=== PATIENT | male | born 1995 | race Caucasian/White ===

== ENCOUNTER 2018-02-09 02:02 | Emergency (ER) | payer OTHER ==
[2018-02-09] MEDS ORDERED: DIPH,PERTUS(ACELL)TETVAC-LF 0.5 ML VIAL IM ONE (02:30)
[2018-02-09] MEDS ORDERED: IBUPROFEN 600 MG TAB PO STA (02:30)
--- NOTE | 2018-02-09 02:36 | ED ---
Wound/Laceration HPI - General Chief Complaint: Wound/Laceration Stated Complaint: Finger Injury, [facility] Time Seen by Provider: 02/09/18 02:24 Source: patient Mode of arrival: ambulatory Limitations: no limitations - History of Present Illness Initial Comments: 22-year-old male patient presents to the emergency department today for evaluation of injury with laceration to the left middle finger. 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 Patient states that he did sustain a laceration to the finger. He denies any numbness or tingling to the digit. States bleeding is under control. Denies any other injuries. He is unsure when his last tetanus vaccine was given. Denies any history of bleeding disorder. Patient denies any headache, neck pain, back pain, chest pain, shortness of breath, dizziness, weakness, abdominal pain, nausea, vomiting, or difficulties with bowel movements or urination. - Related Data Home Medications Medication Instructions Recorded Confirmed Dexmethylphenidate HCl [Focalin Xr] 40 mg PO QAM 02/08/16 02/08/16 Previous Rx's Medication Instructions Recorded Ibuprofen [Motrin] 600 mg PO Q8HR PRN #30 tab 02/09/18 Allergies Allergy/AdvReac Type Severity Reaction Status Date / Time Sulfa (Sulfonamide Allergy Unknown Verified 02/09/18 02:09 Antibiotics) Review of Systems ROS Statement: Those systems with pertinent positive or pertinent negative responses have been documented in the HPI. ROS Other: All systems not noted in ROS Statement are negative. Past Medical History Past Medical History: No Reported History History of Any Multi-Drug Resistant Organisms: None Reported Past Surgical History: Orthopedic Surgery Past Psychological History: ADD/ADHD Smoking Status: Never smoker Past Alcohol Use History: None Reported Past Drug Use History: None Reported General Exam Limitations: no limitations General appearance: alert, in no apparent distress, other (Physical well- developed, well-nourished adult male patient in no acute distress. Vital signs upon presentation are temperature 97.9F, pulse 56, respirations 16, blood pressure 140/69, pulse ox 100% on room air.) Eye exam: Present: normal appearance, PERRL, EOMI. Absent: scleral icterus, conjunctival injection, periorbital swelling ENT exam: Present: normal exam, normal oropharynx, mucous membranes moist Respiratory exam: Present: normal lung sounds bilaterally. Absent: respiratory distress, wheezes, rales, rhonchi, stridor Cardiovascular Exam: Present: regular rate, normal rhythm, normal heart sounds. Absent: systolic murmur, diastolic murmur, rubs, gallop, clicks Extremities exam: Present: full ROM, normal capillary refill, other (Patient has 2 cm laceration to the distal tip of the left middle finger. This does involve the nail. Bleeding is currently under control. Skin is otherwise pink , warm, and dry. Cap refills less than 3 seconds. Radial pulses 2+ and equal bilaterally.). Absent: normal inspection, tenderness, pedal edema, joint swelling, calf tenderness Neurological exam: Present: alert, oriented X3, CN II-XII intact Psychiatric exam: Present: normal affect, normal mood Skin exam: Present: warm, dry, intact, normal color. Absent: rash Course Vital Signs 02/09/18 02:06 Temperature 97.9 F Pulse Rate 56 L Respiratory 16 Rate Blood Pressure 140/69 O2 Sat by Pulse 100 Oximetry Procedures - Laceration Laceration #1 Consent Obtained: verbal consent Time Out Performed: Yes Indication: laceration Site: hand (Left middle finger) Size (cm): 2 Description: linear (Involves nail) Depth: simple, single layer Anesthetic Used: lidocaine 1% Anesthesia Technique: local infiltration Amount (mls): 1 Pre-repair: irrigated extensively Type of Sutures: nylon Size of Sutures: 5-0 Number of Sutures: 2 Technique: simple, interrupted Patient Tolerated Procedure: well, no complications Medical Decision Making - Medical Decision Making 22-year-old male patient presents to the emergency department today for evaluation of left middle finger injury. Physical examination did reveal a 2 cm laceration to the distal tip of the nail involving the nailbed. Did repair the finger using sutures. Patient tolerated the procedure well. There is no evidence of fracture on x-ray. He was educated regarding signs or symptoms of infection. Educated regarding wound care and pain management. He is instructed to return in 7 days for suture removal. He is instructed to follow up with his primary care physician or [facility] for further evaluation. He verbalizes understanding and agrees with this plan. - Radiology Data Radiology results: report reviewed, image reviewed Three-view x-ray of the left middle finger show no fracture nor dislocation. Joint spaces are normal. Middle finger is intact. There is mild soft tissue deformity at the tip of the finger. Impression by Dr. Waldron shows mild soft tissue deformity. No fracture seen. Disposition Clinical Impression: Nailbed laceration, finger, Finger laceration Disposition: HOME SELF-CARE Condition: Good Instructions: Laceration (ED), Care For Your Stitches (ED) Additional Instructions: Keep wound clean and dry. Monitor for signs or symptoms of infection including but not limited to swelling, redness, drainage of pus, fever, or chills. Gently cleanse wound twice daily with warm water and antibacterial soap. Return in 7 days to have stitches removed. Wear splint while working. Follow- up with your primary care physician or [facility] services for further evaluation. Return here immediately for any new, worsening, or concerning symptoms. Prescriptions: Ibuprofen [Motrin] 600 mg PO Q8HR PRN #30 tab PRN Reason: Pain Referrals: Miguel Angel Stallworth MD [Primary Care Provider] - 1-2 days Time of Disposition: 03:20
--- NOTE | 2018-02-09 02:53 | XR ---
EXAMINATION TYPE: XR finger LT DATE OF EXAM: 02/09/2018 COMPARISON: NONE HISTORY: Injury TECHNIQUE: 3 views FINDINGS: I see no fracture nor dislocation. Joint spaces are normal. Middle finger is intact. There is mild soft tissue deformity at the tip of the finger. IMPRESSION: Mild soft tissue deformity. No fracture seen.
[2018-02-09 03:35] VITALS: BP 130/82; PULSE 75; RESP 18; TEMP 98.4
== END 2018-02-09 03:35 | disposition home or self-care (01) ==
LOC: EC 02:02
DX: S61.213A Laceration without foreign body of left middle finger without damage to nail, initial encounter (principal); F90.9 Attention-deficit hyperactivity disorder, unspecified type; Z79.899 Other long term (current) drug therapy; Z88.2 Allergy status to sulfonamides; Z23 Encounter for immunization; W31.9XXA Contact with unspecified machinery, initial encounter; Y93.89 Activity, other specified; Y92.63 Factory as the place of occurrence of the external cause; Y99.0 Civilian activity done for income or pay
CPT/HCPCS: 12001; 90471; 90715; 99283

== ENCOUNTER 2018-07-24 07:01 | Emergency (ER) | payer BC ==
[2018-07-24 07:09] VITALS: BP 132/66; PULSE 59; RESP 16; TEMP 98.3
--- NOTE | 2018-07-24 07:32 | ED ---
General Adult HPI - General Chief complaint: ENT Stated complaint: Ear Pain Time Seen by Provider: 07/24/18 07:20 Source: patient, RN notes reviewed Mode of arrival: ambulatory Limitations: no limitations - History of Present Illness Initial comments: Patient is a pleasant 22-year-old male presenting to the emergency department with left earache. Onset of symptoms was yesterday. Patient does admit to recently swimming at the . Patient has discomfort left ear that increases with movement. No hearing loss. No fevers. - Related Data Home Medications Medication Instructions Recorded Confirmed Dexmethylphenidate HCl [Focalin Xr] 40 mg PO QAM 02/08/16 02/08/16 Previous Rx's Medication Instructions Recorded Ibuprofen [Motrin] 600 mg PO Q8HR PRN #30 tab 02/09/18 Enoimvda-Saqzdxcsw-El Otic 4 drops LEFT EAR QID #10 ml 07/24/18 [Cortisporin Otic Soln] Allergies Allergy/AdvReac Type Severity Reaction Status Date / Time Sulfa (Sulfonamide Allergy Unknown Verified 02/09/18 02:09 Antibiotics) Review of Systems ROS Statement: Those systems with pertinent positive or pertinent negative responses have been documented in the HPI. Constitutional: Denies: fever Eyes: Denies: eye pain ENT: Reports: ear pain. Denies: throat pain Respiratory: Denies: dyspnea Cardiovascular: Denies: chest pain Gastrointestinal: Denies: abdominal pain Skin: Denies: rash Neurological: Denies: headache Past Medical History Past Medical History: No Reported History History of Any Multi-Drug Resistant Organisms: None Reported Past Surgical History: Orthopedic Surgery Additional Past Surgical History / Comment(s): l elbow Past Psychological History: ADD/ADHD Smoking Status: Current every day smoker Past Alcohol Use History: Occasional Past Drug Use History: Marijuana General Exam Limitations: no limitations General appearance: alert, in no apparent distress Head exam: Present: atraumatic Eye exam: Present: normal appearance ENT exam: Present: normal oropharynx, other (Left canal with swelling and mild erythema) Neck exam: Present: normal inspection Respiratory exam: Present: normal lung sounds bilaterally Cardiovascular Exam: Present: regular rate, normal rhythm GI/Abdominal exam: Present: soft. Absent: tenderness Neurological exam: Present: alert Psychiatric exam: Present: normal affect, normal mood Skin exam: Present: normal color. Absent: rash Course Vital Signs 07/24/18 07:07 Temperature 98.3 F Pulse Rate 59 L Respiratory 16 Rate Blood Pressure 132/66 O2 Sat by Pulse 98 Oximetry Disposition Clinical Impression: Otitis externa Disposition: HOME SELF-CARE Condition: Stable Instructions: Otitis Externa (ED) Additional Instructions: Please follow-up with primary care physician in the next couple days for recheck. Return for hearing loss, swelling, fevers, worsening or changing symptoms or other concerns. Prescriptions: Qyyljxhc-Sbifyrhba-Tt Otic [Cortisporin Otic Soln] 4 drops LEFT EAR QID #10 ml Is patient prescribed a controlled substance at d/c from ED?: No Referrals: Price Hartley MD [STAFF PHYSICIAN] - 1-2 days Time of Disposition: 07:31
== END 2018-07-24 07:36 | disposition home or self-care (01) ==
LOC: EC 07:01
DX: H60.92 Unspecified otitis externa, left ear (principal); F90.9 Attention-deficit hyperactivity disorder, unspecified type; F17.200 Nicotine dependence, unspecified, uncomplicated; Z79.899 Other long term (current) drug therapy; Z88.2 Allergy status to sulfonamides
CPT/HCPCS: 99282

== ENCOUNTER 2019-10-31 04:12 | Emergency (ER) | payer BC ==
[2019-10-31 04:22] VITALS: TEMP 98
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
[2019-10-31 06:16] VITALS: BP 132/82; PULSE 82; RESP 18
--- NOTE | 2019-10-31 06:17 | XR ---
EXAM: XR Chest, 2 Views CLINICAL HISTORY: chest pain TECHNIQUE: Frontal and lateral views of the chest. COMPARISON: No relevant prior studies available. FINDINGS: Lungs: Low lung volumes. No consolidation. Pleural space: Unremarkable. No pleural effusions. No pneumothorax. Heart: Unremarkable. No cardiomegaly. Mediastinum: Unremarkable. Bones/joints: Unremarkable. IMPRESSION: No acute cardiopulmonary process.
== END 2019-10-31 06:15 | disposition home or self-care (01) ==
LOC: EC 04:12
DX: R07.89 Other chest pain (principal); R20.2 Paresthesia of skin; R53.1 Weakness; F90.9 Attention-deficit hyperactivity disorder, unspecified type; F17.200 Nicotine dependence, unspecified, uncomplicated; Z88.2 Allergy status to sulfonamides; Z79.899 Other long term (current) drug therapy; Z63.4 Disappearance and death of family member; Z63.79 Other stressful life events affecting family and household
CPT/HCPCS: 71046; 93005; 99285

== ENCOUNTER 2021-07-01 04:58 | Emergency (ER) | payer BC, OTHER ==
[2021-07-01 05:04] VITALS: RESP 18; TEMP 98.7
--- NOTE | 2021-07-01 05:20 | ED ---
Chest Pain HPI - General Chief Complaint: Chest Pain Stated Complaint: Chest Pain Time Seen by Provider: 07/01/21 05:03 Source: patient, RN notes reviewed, old records reviewed Mode of arrival: wheelchair Limitations: no limitations - History of Present Illness Initial Comments: This is a 25-year-old male DF for evaluation. Today he presents for evaluation regards to chest pain chest pain that began while at work today. Patient states isn't working a lot lately drink bladder days and occasional rigidity injury. Patient does have a history of alcohol use and smoking. Patient comes in for some chest pain that occurred at work that brought him to his knees now currently resolved. Otherwise patient is no medical history takes no medications no significant family history of heart disease MD Complaint: chest pain -: hour(s) Onset: during exertion Pain Location: substernal Pain Radiation: none Severity: mild Severity scale (1-10): 2 Quality: tightness, sharp Consistency: constant, now resolved Improves With: nothing Worsens With: nothing Anginal Symptoms: diaphoresis, sense of impending doom Other Symptoms: palpitations Treatments Prior to Arrival: none - Related Data Home Medications Medication Instructions Recorded Confirmed Dexmethylphenidate HCl [Focalin Xr] 40 mg PO QAM 02/08/16 02/08/16 Previous Rx's Medication Instructions Recorded Ibuprofen [Motrin] 600 mg PO Q8HR PRN #30 tab 02/09/18 Lahanqxq-Deffzxqxe-Kh Otic 4 drops LEFT EAR QID #10 ml 07/24/18 [Cortisporin Otic Soln] Allergies Allergy/AdvReac Type Severity Reaction Status Date / Time Sulfa (Sulfonamide Allergy Unknown Verified 07/01/21 05:04 Antibiotics) Review of Systems ROS Statement: Those systems with pertinent positive or pertinent negative responses have been documented in the HPI. ROS Other: All systems not noted in ROS Statement are negative. EKG Findings - EKG Comments: EKG Findings:: EKG is sinus rhythm 63 CA 162 QRS 110 QTc 384 Past Medical History Past Medical History: No Reported History History of Any Multi-Drug Resistant Organisms: None Reported Past Surgical History: Orthopedic Surgery Additional Past Surgical History / Comment(s): l elbow Past Psychological History: ADD/ADHD Smoking Status: Vaper Past Alcohol Use History: Heavy Past Drug Use History: Marijuana General Exam General appearance: alert, in no apparent distress Head exam: Present: atraumatic, normocephalic, normal inspection Eye exam: Present: normal appearance, PERRL, EOMI. Absent: scleral icterus, conjunctival injection, periorbital swelling ENT exam: Present: normal exam, mucous membranes moist Neck exam: Present: normal inspection. Absent: tenderness, meningismus, lymphadenopathy Respiratory exam: Present: normal lung sounds bilaterally. Absent: respiratory distress, wheezes, rales, rhonchi, stridor Cardiovascular Exam: Present: regular rate, normal rhythm, normal heart sounds. Absent: systolic murmur, diastolic murmur, rubs, gallop, clicks GI/Abdominal exam: Present: soft, normal bowel sounds. Absent: distended, tenderness, guarding, rebound, rigid Extremities exam: Present: normal inspection, full ROM, normal capillary refill. Absent: tenderness, pedal edema, joint swelling, calf tenderness Back exam: Present: normal inspection Neurological exam: Present: alert, oriented X3, CN II-XII intact Psychiatric exam: Present: normal affect, normal mood Skin exam: Present: warm, dry, intact, normal color. Absent: rash Course Vital Signs 07/01/21 04:59 Temperature 98.7 F Pulse Rate 84 Respiratory 18 Rate Blood Pressure 147/95 - Reevaluation(s) Reevaluation #1: 07/01/21 05:22 Medical record is reviewed Reevaluation #2: 07/01/21 05:22 Patient remains without chest pain Reevaluation #3: 07/01/21 05:22 Patient informed results and questions are answered Chest Pain MDM - MDM 25 male to the ER for evaluation, patient here in the ER for chest pain, chest pain resolved and patient can be discharged home Disposition Clinical Impression: Chest pain, Atypical chest pain Disposition: HOME SELF-CARE Condition: Good Instructions (If sedation given, give patient instructions): Chest Pain (ED) Is patient prescribed a controlled substance at d/c from ED?: No Referrals: None,Stated [Primary Care Provider] - 1-2 days
[2021-07-01 05:51] VITALS: BP 136/87; PULSE 75
--- NOTE | 2021-07-01 06:04 | XR ---
EXAMINATION TYPE: XR chest 1V portable DATE OF EXAM: 07/01/2021 COMPARISON: 10/31/2019 HISTORY: Chest pain TECHNIQUE: FINDINGS: Heart and mediastinum are normal. Lungs are clear. Diaphragm is normal. Bony thorax is inta ct. IMPRESSION: Normal chest. No change.
== END 2021-07-01 05:51 | disposition home or self-care (01) ==
LOC: EC 04:58
DX: R07.89 Other chest pain (principal); F90.9 Attention-deficit hyperactivity disorder, unspecified type; F17.290 Nicotine dependence, other tobacco product, uncomplicated; Z72.89 Other problems related to lifestyle; F12.90 Cannabis use, unspecified, uncomplicated
CPT/HCPCS: 71045; 93005; 99285

== ENCOUNTER 2021-07-07 07:07 | Emergency (ER) | payer OTHER ==
[2021-07-07] MEDS ORDERED: LIDOCAINE 1% INJ 10MG/ML (20 ML MDV) SQ ONE (07:50)
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
--- NOTE | 2021-07-07 09:16 | ED ---
General Adult HPI - General Chief complaint: Wound/Laceration Stated complaint: Right middle finger lac - [facility] Time Seen by Provider: 07/07/21 07:31 Source: patient Mode of arrival: ambulatory Limitations: no limitations - History of Present Illness Initial comments: Patient is a 25-year-old male who presents to the emergency room for a chief complaint of laceration. 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 Patient denies any difficulty bending his finger. States his tetanus is up-to-date 5 years ago. Patient reports that his work put a powder over it in order to get it to stop bleeding.Patient has no other complaints at this time including shortness of breath, chest pain, abdominal pain, nausea or vomiting, headache, or visual changes. - Related Data Home Medications Medication Instructions Recorded Confirmed Dexmethylphenidate HCl [Focalin Xr] 40 mg PO QAM 02/08/16 02/08/16 Previous Rx's Medication Instructions Recorded Ibuprofen [Motrin] 600 mg PO Q8HR PRN #30 tab 02/09/18 Eeekvzgs-Ncrfkulrj-Zw Otic 4 drops LEFT EAR QID #10 ml 07/24/18 [Cortisporin Otic Soln] Cephalexin [Keflex] 500 mg PO Q6HR 5 Days #20 cap 07/07/21 Allergies Allergy/AdvReac Type Severity Reaction Status Date / Time Sulfa (Sulfonamide Allergy Unknown Verified 07/07/21 07:10 Antibiotics) Review of Systems ROS Statement: Those systems with pertinent positive or pertinent negative responses have been documented in the HPI. ROS Other: All systems not noted in ROS Statement are negative. Past Medical History Past Medical History: No Reported History History of Any Multi-Drug Resistant Organisms: None Reported Past Surgical History: Orthopedic Surgery Additional Past Surgical History / Comment(s): l elbow Past Psychological History: ADD/ADHD Smoking Status: Vaper Past Alcohol Use History: Occasional Past Drug Use History: None Reported General Exam Limitations: no limitations General appearance: alert, in no apparent distress Head exam: Present: atraumatic Eye exam: Present: normal appearance, PERRL, EOMI. Absent: scleral icterus, conjunctival injection ENT exam: Present: normal exam, mucous membranes moist Neck exam: Present: normal inspection, full ROM. Absent: tenderness Respiratory exam: Present: normal lung sounds bilaterally. Absent: respiratory distress, wheezes Cardiovascular Exam: Present: regular rate, normal rhythm, normal heart sounds Extremities exam: Present: full ROM (Full range motion of the right third digit including flexion of the MCP, PIP, and DIP joints.), normal capillary refill (Apley refill less than 2 seconds in all digits of the right hand including the right third digit. Radial pulses 2+.), other (Laceration noted to the third digit right hand volar aspect of PIP joint. This I do not see any deep structure injury.) Course Vital Signs 07/07/21 07:10 Temperature 98 F Pulse Rate 71 Respiratory 18 Rate Blood Pressure 138/93 O2 Sat by Pulse 98 Oximetry Procedures - Laceration Laceration #1 Consent Obtained: verbal consent Indication: laceration Site: hand Size (cm): 3 Description: linear, flap Depth: simple, single layer Anesthetic Used: lidocaine 1% Anesthesia Technique: local infiltration Amount (mls): 3 Pre-repair: wound explored, irrigated extensively, deep structures intact Type of Sutures: nylon Size of Sutures: 4-0 Number of Sutures: 5 Technique: simple, interrupted Patient Tolerated Procedure: well, no complications Medical Decision Making - Medical Decision Making X-ray revealed a linear lucency consistent with laceration and small densities that could reflect overlying debris. This is likely the powder that was applied. This was soaked off. I then irrigated the wound with saline pressure irrigation. It was then repaired using simple suturing. Patient was given return parameters and care instructions. He will follow-up with his doctor. He will return here for suture removal or any worsening symptoms or signs of infection. Disposition Clinical Impression: Laceration Disposition: HOME SELF-CARE Condition: Good Instructions (If sedation given, give patient instructions): Care For Your Stitches (ED), Laceration (ED) Additional Instructions: Please keep the wound clean with gentle soap and water twice daily. Apply antibiotic ointment daily. Return in 7-10 days for suture removal. Return earlier if there are any signs of infections or any other worsening symptoms. Prescriptions: Cephalexin [Keflex] 500 mg PO Q6HR 5 Days #20 cap Is patient prescribed a controlled substance at d/c from ED?: No Referrals: None,Stated [Primary Care Provider] - 1-2 days Time of Disposition: 09:14
[2021-07-07 09:50] VITALS: BP 141/80; PULSE 89; RESP 16; TEMP 98.2
[2021-07-07] MEDS ORDERED: NICOTINE 21MG/24HR PATCH TRANSDERM STA (09:51)
[2021-07-07] MEDS ORDERED: LORazepam 2 MG/ML INJ IM STA (09:51)
== END 2021-07-07 09:38 | disposition home or self-care (01) ==
LOC: EC 07:07
DX: S61.212A Laceration without foreign body of right middle finger without damage to nail, initial encounter (principal); F17.290 Nicotine dependence, other tobacco product, uncomplicated; Z79.1 Long term (current) use of non-steroidal anti-inflammatories (NSAID); Z79.899 Other long term (current) drug therapy; Z88.2 Allergy status to sulfonamides; W26.8XXA Contact with other sharp object(s), not elsewhere classified, initial encounter; Y99.0 Civilian activity done for income or pay
CPT/HCPCS: 73140; 12002; 99283; J2001

== ENCOUNTER 2022-08-17 23:12 | Emergency (ER) | payer OTHER ==
[2022-08-17 23:23] VITALS: TEMP 97.9
[2022-08-18] MEDS ORDERED: SODIUM CHLORIDE 0.9% 1,000 ML IV STA (00:05)
[2022-08-18] MEDS ORDERED: AMPICILLIN-SULBACTAM 3 GM in SODIUM CHLORIDE 0.9% 50 ML IVPB STA (00:05)
[2022-08-18] MEDS ORDERED: AMPICILLIN-SULBACTAM 3 GM in SODIUM CHLORIDE 0.9% 100 ML IVPB STA (00:09)
--- NOTE | 2022-08-18 00:09 | ED ---
Animal Bite HPI - General Chief Complaint: Animal Bite Stated Complaint: Left hand Painful swelling Time Seen by Provider: 08/17/22 23:37 Source: patient, RN notes reviewed Mode of arrival: ambulatory Limitations: no limitations - History of Present Illness Initial Comments: This is a pleasant, [id number] 27-year-old male who was bitten by his girlfriend's cat yesterday. Patient now presenting with erythema, edema, and pain to left hand. Patient states the bite cause a small puncture wound to the fourth interdigital space. Patient believes he is up-to-date on tetanus. Patient is a cigarette smoker. No headache, no fever or chills, no changes in vision or hearing, no sore throat or difficulty with speech, no neck pain, no chest pain or shortness of breath, no abdominal pain, no nausea or vomiting, no changes in urination or bowel movements, no numbness or tingling, no skin rashes or lesions. Past medical, surgical, social, and family history reviewed. MD Complaint: animal bite - Related Data Home Medications Medication Instructions Recorded Confirmed Dexmethylphenidate HCl [Focalin Xr] 40 mg PO QAM 02/08/16 02/08/16 Previous Rx's Medication Instructions Recorded Ibuprofen [Motrin] 600 mg PO Q8HR PRN #30 tab 02/09/18 Qcictnfd-Ajxjbvnfu-Vt Otic 4 drops LEFT EAR QID #10 ml 07/24/18 [Cortisporin Otic Soln] Cephalexin [Keflex] 500 mg PO Q6HR 5 Days #20 cap 07/07/21 Amoxic-Pot Clav 875-125Mg 1 tab PO Q12HR 1 Days #20 tab 08/18/22 [Augmentin 875-125] Allergies Allergy/AdvReac Type Severity Reaction Status Date / Time Sulfa (Sulfonamide Allergy Unknown Verified 08/17/22 23:23 Antibiotics) Review of Systems ROS Statement: Those systems with pertinent positive or pertinent negative responses have been documented in the HPI. ROS Other: All systems not noted in ROS Statement are negative. Past Medical History Past Medical History: No Reported History History of Any Multi-Drug Resistant Organisms: None Reported Past Surgical History: Orthopedic Surgery Additional Past Surgical History / Comment(s): l elbow Past Psychological History: ADD/ADHD Smoking Status: Vaper Past Alcohol Use History: Occasional Past Drug Use History: None Reported General Exam - General Exam Comments Initial Comments: Patient does not appear to be ill or toxic. Vital signs reviewed. Limitations: no limitations General appearance: alert, in no apparent distress Head exam: Present: atraumatic, normocephalic, normal inspection Eye exam: Present: normal appearance, PERRL, EOMI. Absent: scleral icterus, conjunctival injection, periorbital swelling ENT exam: Present: normal exam, mucous membranes moist Neck exam: Present: normal inspection, full ROM. Absent: tenderness, meningismus, lymphadenopathy Respiratory exam: Present: normal lung sounds bilaterally. Absent: respiratory distress, wheezes, rales, rhonchi, stridor Cardiovascular Exam: Present: regular rate, normal rhythm, normal heart sounds. Absent: systolic murmur, diastolic murmur, rubs, gallop, clicks GI/Abdominal exam: Present: soft, normal bowel sounds. Absent: distended, tenderness, guarding, rebound, rigid Extremities exam: Present: full ROM (Pulses are 2+ out of 4. Capillary refill less than 2 seconds. Sensation intact), normal capillary refill, other (Full range of motion with regard to all fingers, hand, and wrist with some increased pain.). Absent: normal inspection (Patient has edema noted to the dorsum of his left hand. Erythema progressing just past the wrist. No lymphangitis. No axillary adenopathy. Tiny puncture wound noted to the fourth interdigital space on the extensor aspect of the hand.), tenderness, joint swelling Back exam: Present: normal inspection Neurological exam: Present: alert, oriented X3, CN II-XII intact. Absent: motor sensory deficit Psychiatric exam: Present: normal affect, normal mood Skin exam: Present: warm, dry, intact, normal color. Absent: rash Course Vital Signs 08/17/22 23:19 Temperature 97.9 F Pulse Rate 60 Respiratory 16 Rate Blood Pressure 153/81 O2 Sat by Pulse 99 Oximetry Medical Decision Making - Medical Decision Making Patient be treated for cat-bite cellulitis. He received a dose of Unasyn here. Patient stated he was up-to-date on tetanus. Augmentin 875 mg twice a day. Patient has no primary care doctor. Patient will return to the emergency department in 48 hours for recheck. Discussed this with the patient. All questions answered. Treatment plan discussed. Cat is the family pet and can be monitored. Cat is up-to-date on immunizations. Patient was told to return to the ER for any signs or symptoms worsen. Told to return immediately if any other problems arise. All questions answered. Treatment plan discussed. Patient in agreement Every effort has been made to ensure accuracy of this dictation. However, due to the limitations of electronic medical records and dictation devices, errors in charting still occur. - Lab Data Result diagrams: 08/18/22 00:43 08/18/22 00:43 Lab Results 08/18/22 08/18/22 08/18/22 Range/Units 00:43 00:43 00:43 WBC 11.1 H (3.8-10.6) k/uL RBC 5.60 (4.30-5.90) m/uL Hgb 16.4 (13.0-17.5) gm/dL Hct 48.8 (39.0-53.0) % MCV 87.1 (80.0-100.0) fL MCH 29.3 (25.0-35.0) pg MCHC 33.7 (31.0-37.0) g/dL RDW 13.5 (11.5-15.5) % Plt Count 226 (150-450) k/uL MPV 7.7 Neutrophils % 57 % Lymphocytes % 33 % Monocytes % 5 % Eosinophils % 3 % Basophils % 1 % Neutrophils # 6.3 (1.3-7.7) k/uL Lymphocytes # 3.6 (1.0-4.8) k/uL Monocytes # 0.5 (0-1.0) k/uL Eosinophils # 0.3 (0-0.7) k/uL Basophils # 0.1 (0-0.2) k/uL Sodium 138 (137-145) mmol/L Potassium 3.9 (3.5-5.1) mmol/L Chloride 101 (98-107) mmol/L Carbon Dioxide 23 (22-30) mmol/L Anion Gap 14 mmol/L BUN 16 (9-20) mg/dL Creatinine 0.84 (0.66-1.25) mg/dL Est GFR (CKD-EPI)AfAm >90 (>60 ml/min/1.73 sqM) Est GFR (CKD-EPI)NonAf >90 (>60 ml/min/1.73 sqM) Glucose 101 H (74-99) mg/dL Plasma Lactic Acid Giacomo 1.3 (0.7-2.0) mmol/L Calcium 9.2 (8.4-10.2) mg/dL - Radiology Data Radiology results: report reviewed, image reviewed Disposition Clinical Impression: Cat bite, Cellulitis of left hand Disposition: HOME SELF-CARE Instructions (If sedation given, give patient instructions): Animal Bite (ED) Additional Instructions: Take the antibiotic as directed. Elevate the hand whenever possible. Apply warm compresses for 10-15 minutes at a time 4 times per day. Follow-up with your regular physician as directed. Return to the ER immediately if any sym ptoms worsen, new symptoms arise, or any other problems develop. Return to the emergency department in 48 hours for reevaluation and recheck. Prescriptions: Amoxic-Pot Clav 875-125Mg [Augmentin 875-125] 1 tab PO Q12HR 1 Days #20 tab Is patient prescribed a controlled substance at d/c from ED?: No Referrals: None,Stated [Primary Care Provider] - 1-2 days Time of Disposition: 01:33
[2022-08-18 00:58] LABS: Basophils # (A) 0.1 k/uL (0-0.2); Basophils % (A) 1 %; Eosinophils # (A) 0.3 k/uL (0-0.7); Eosinophils % (A) 3 %; HCT 48.8 % (39.0-53.0); HGB 16.4 gm/dL (13.0-17.5); Lymphocytes # (A) 3.6 k/uL (1.0-4.8); Lymphocytes % (A) 33 %; MCH 29.3 pg (25.0-35.0); MCHC 33.7 g/dL (31.0-37.0); MCV 87.1 fL (80.0-100.0); Mean Platelet Volume 7.7; Monocytes # (A) 0.5 k/uL (0-1.0); Monocytes % (A) 5 %; Neutrophils # (A) 6.3 k/uL (1.3-7.7); Neutrophils % (A) 57 %; Platelet Count 226 k/uL (150-450); RDW 13.5 % (11.5-15.5); WBC 11.1 k/uL (3.8-10.6)
[2022-08-18 01:10] LABS: African American GFR (CKD) >90 (>60 ml/min/1.73 sqM); Anion Gap 14 mmol/L; Blood Urea Nitrogen 16 mg/dL (9-20); Calcium 9.2 mg/dL (8.4-10.2); Carbon Dioxide 23 mmol/L (22-30); Chloride 101 mmol/L (98-107); Glucose 101 mg/dL (74-99); Non-African American GFR(CKD) >90 (>60 ml/min/1.73 sqM); Potassium 3.9 mmol/L (3.5-5.1); Sodium 138 mmol/L (137-145)
--- NOTE | 2022-08-18 01:28 | XR ---
EXAM: XR Left Hand Complete, 3 or More Views CLINICAL HISTORY: ITS.REASON XR Reason: Cat-bite TECHNIQUE: Frontal, lateral and oblique views of the left hand. COMPARISON: No relevant prior studies available. FINDINGS: Bones/joints: Unremarkable. No acute fracture. No dislocation. Soft tissues: Unremarkable. No radiopaque foreign body. IMPRESSION: Normal left hand x-rays.
[2022-08-18 01:59] VITALS: BP 115/67; PULSE 50; RESP 14
== END 2022-08-18 01:52 | disposition home or self-care (01) ==
LOC: EC 23:12
DX: S61.452A Open bite of left hand, initial encounter (principal); L03.114 Cellulitis of left upper limb; F12.90 Cannabis use, unspecified, uncomplicated; Z88.2 Allergy status to sulfonamides; W55.01XA Bitten by cat, initial encounter
CPT/HCPCS: 36415; 80048; 83605; 85025; 73130; 99283; J0295

== ENCOUNTER 2022-10-05 22:01 | Emergency (ER) | payer OTHER ==
[2022-10-05] MEDS ORDERED: SODIUM CHLORIDE 0.9% 1,000 ML IV ONE (22:22)
[2022-10-05] MEDS ORDERED: ONDANSETRON 4 MG/2 ML VIAL IVP STA (22:22)
[2022-10-05 23:06] LABS: Basophils # (A) 0.1 k/uL (0-0.2); Basophils % (A) 1 %; Eosinophils # (A) 0.2 k/uL (0-0.7); Eosinophils % (A) 2 %; HCT 47.3 % (39.0-53.0); HGB 15.9 gm/dL (13.0-17.5); Lymphocytes # (A) 2.7 k/uL (1.0-4.8); Lymphocytes % (A) 25 %; MCH 29.2 pg (25.0-35.0); MCHC 33.6 g/dL (31.0-37.0); MCV 86.9 fL (80.0-100.0); Mean Platelet Volume 7.7; Monocytes # (A) 0.6 k/uL (0-1.0); Monocytes % (A) 6 %; Neutrophils # (A) 6.9 k/uL (1.3-7.7); Neutrophils % (A) 65 %; Platelet Count 237 k/uL (150-450); RBC 5.44 m/uL (4.30-5.90); RDW 13.6 % (11.5-15.5); WBC 10.6 k/uL (3.8-10.6)
[2022-10-05 23:07] LABS: ALT 26 U/L (4-49); AST 22 U/L (17-59); African American GFR (CKD) >90 (>60 ml/min/1.73 sqM); Albumin 4.7 g/dL (3.5-5.0); Alkaline Phosphatase 100 U/L (38-126); Anion Gap 11 mmol/L; Blood Urea Nitrogen 19 mg/dL (9-20); Calcium 9.2 mg/dL (8.4-10.2); Carbon Dioxide 25 mmol/L (22-30); Chloride 104 mmol/L (98-107); Glucose 100 mg/dL (74-99); Non-African American GFR(CKD) >90 (>60 ml/min/1.73 sqM); Potassium 4.3 mmol/L (3.5-5.1); Sodium 140 mmol/L (137-145); Total Bilirubin 0.4 mg/dL (0.2-1.3); Total Protein 7.5 g/dL (6.3-8.2)
--- NOTE | 2022-10-05 23:44 | XR ---
EXAMINATION TYPE: XR chest 2V DATE OF EXAM: 10/05/2022 COMPARISON: 07/01/2021 HISTORY: Cough and chest pain TECHNIQUE: 2 views FINDINGS: There is mild subsegmental atelectasis right lung base. Heart size is normal. No heart fail ure There are no hilar masses. Costophrenic angles are clear. Bony thorax is intact. IMPRESSION: Subsegmental atelectasis. Normal heart. Atelectasis appears new compared to old exam.
--- NOTE | 2022-10-06 00:37 | ED ---
General Adult HPI - General Chief complaint: Recheck/Abnormal Lab/Rx Stated complaint: Poss carbon monoxide exposure Time Seen by Provider: 10/05/22 22:10 Source: patient Mode of arrival: wheelchair Limitations: no limitations - History of Present Illness Initial comments: 27-year-old male presents to the emergency department for possible carbon monoxide poisoning. 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 He states that he had been doing this for approximately 5 hours with the garage door only slightly cracked. He then started feeling nauseated. Thought he was dehydrated and therefore drink in apple juice and went outside. He also developed a headache and had an episode of vomiting. He had left when he received a call from his uncle who began having similar symptoms and was concerned that they both may have had carbon monoxide poisoning. He denies exposure to any other chemicals. No syncope. No confusion. Denies any blurred vision. He is a nonsmoker. No other alleviating, precipitating or modifying factors - Related Data Home Medications Medication Instructions Recorded Confirmed Dexmethylphenidate HCl [Focalin Xr] 40 mg PO QAM 02/08/16 02/08/16 Previous Rx's Medication Instructions Recorded Ibuprofen [Motrin] 600 mg PO Q8HR PRN #30 tab 02/09/18 Igqacmqq-Fxvjehxtf-Ks Otic 4 drops LEFT EAR QID #10 ml 07/24/18 [Cortisporin Otic Soln] Cephalexin [Keflex] 500 mg PO Q6HR 5 Days #20 cap 07/07/21 Amoxic-Pot Clav 875-125Mg 1 tab PO Q12HR 1 Days #20 tab 08/18/22 [Augmentin 875-125] Allergies Allergy/AdvReac Type Severity Reaction Status Date / Time Sulfa (Sulfonamide Allergy Unknown Verified 10/05/22 22:06 Antibiotics) Review of Systems ROS Statement: Those systems with pertinent positive or pertinent negative responses have been documented in the HPI. ROS Other: All systems not noted in ROS Statement are negative. Past Medical History Past Medical History: No Reported History History of Any Multi-Drug Resistant Organisms: None Reported Past Surgical History: Orthopedic Surgery Additional Past Surgical History / Comment(s): l elbow Past Psychological History: ADD/ADHD Smoking Status: Vaper Past Alcohol Use History: Occasional Past Drug Use History: None Reported General Exam Limitations: no limitations General appearance: alert, in no apparent distress Head exam: Present: atraumatic, normocephalic, normal inspection Eye exam: Present: normal appearance, PERRL, EOMI. Absent: scleral icterus, conjunctival injection, periorbital swelling ENT exam: Present: normal exam, mucous membranes moist Neck exam: Present: normal inspection. Absent: tenderness, meningismus, lymphadenopathy Respiratory exam: Present: normal lung sounds bilaterally. Absent: respiratory distress, wheezes, rales, rhonchi, stridor Cardiovascular Exam: Present: normal rhythm, tachycardia, normal heart sounds. Absent: systolic murmur, diastolic murmur, rubs, gallop, clicks GI/Abdominal exam: Present: soft, normal bowel sounds. Absent: distended, tenderness, guarding, rebound, rigid Extremities exam: Present: normal inspection, full ROM, normal capillary refill. Absent: tenderness, pedal edema, joint swelling, calf tenderness Back exam: Present: normal inspection Neurological exam: Present: alert, oriented X3, CN II-XII intact Psychiatric exam: Present: normal affect, normal mood Skin exam: Present: warm, intact, normal color, diaphoretic. Absent: rash Course Vital Signs 10/05/22 10/05/22 10/05/22 22:03 22:06 23:06 Temperature 98.1 F Pulse Rate 105 H 92 65 Respiratory 20 20 18 Rate Blood Pressure 139/87 134/80 125/63 O2 Sat by Pulse 99 100 100 Oximetry 10/06/22 10/06/22 10/06/22 00:06 01:00 01:46 Temperature 98 F Pulse Rate 63 78 88 Respiratory 18 20 18 Rate Blood Pressure 130/50 122/71 127/76 O2 Sat by Pulse 100 100 100 Oximetry EKG Findings - EKG Comments: EKG Findings:: EKG demonstrates sinus rhythm with a rate of 71. NM interval 172. QRS 109. QTC 371. Q wave with inverted T-wave in lead 3. No acute ST segment elevations. EKG was interpreted by myself Medical Decision Making - Medical Decision Making On arrival patient is placed into trauma 2. A thorough history and physical exam was performed. He was immediately placed on a nonrebreather at 15 L. IV is established. Laboratory studies are conducted. Twelve-lead EKG was performed. Chest x-ray was also performed. Laboratory studies are reviewed and demonstrate a CO level of is 16.9. Chest x-ray demonstrates mild atelectasis. He is observed in the emergency department for 4 hours and does have improvement in his symptoms. He will be discharged home. Instructed that he cannot return to the environment that he was working and as it is dangerous. The carotids needs to be aired out before anyone can enter it. He is to follow up with his doctor in 2 to 4 days and return for any new or worsening symptoms. Patient agreeable to plan and he was discharged home in stable condition - Lab Data Result diagrams: 10/05/22 22:44 10/05/22 22:44 Lab Results 10/05/22 10/05/22 10/05/22 Range/Units 22:44 22:44 22:44 WBC 10.6 (3.8-10.6) k/uL RBC 5.44 (4.30-5.90) m/uL Hgb 15.9 (13.0-17.5) gm/dL Hct 47.3 (39.0-53.0) % MCV 86.9 (80.0-100.0) fL MCH 29.2 (25.0-35.0) pg MCHC 33.6 (31.0-37.0) g/dL RDW 13.6 (11.5-15.5) % Plt Count 237 (150-450) k/uL MPV 7.7 Neutrophils % 65 % Lymphocytes % 25 % Monocytes % 6 % Eosinophils % 2 % Basophils % 1 % Neutrophils # 6.9 (1.3-7.7) k/uL Lymphocytes # 2.7 (1.0-4.8) k/uL Monocytes # 0.6 (0-1.0) k/uL Eosinophils # 0.2 (0-0.7) k/uL Basophils # 0.1 (0-0.2) k/uL Carbon Monoxide, Quant 16.9 H* (<10.0) % Sodium 140 (137-145) mmol/L Potassium 4.3 (3.5-5.1) mmol/L Chloride 104 (98-107) mmol/L Carbon Dioxide 25 (22-30) mmol/L Anion Gap 11 mmol/L BUN 19 (9-20) mg/dL Creatinine 1.03 (0.66-1.25) mg/dL Est GFR (CKD-EPI)AfAm >90 (>60 ml/min/1.73 sqM) Est GFR (CKD-EPI)NonAf >90 (>60 ml/min/1.73 sqM) Glucose 100 H (74-99) mg/dL Calcium 9.2 (8.4-10.2) mg/dL Total Bilirubin 0.4 (0.2-1.3) mg/dL AST 22 (17-59) U/L ALT 26 (4-49) U/L Alkaline Phosphatase 100 (38-126) U/L Total Protein 7.5 (6.3-8.2) g/dL Albumin 4.7 (3.5-5.0) g/dL Disposition Clinical Impression: Nausea and vomiting, Headache, Carbon monoxide poisoning Disposition: HOME SELF-CARE Condition: Stable Instructions (If sedation given, give patient instructions): Carbon Monoxide Poisoning (ED) Additional Instructions: Please follow-up with your primary care doctor in 2-4 days and return for any new or worsening symptoms. Do not go back into the garage until it has been adequately ventilated Is patient prescribed a controlled substance at d/c from ED?: No Referrals: None,Stated [Primary Care Provider] - 1-2 days Time of Disposition: 01:45
[2022-10-06 01:48] VITALS: BP 127/76; PULSE 88; RESP 18; TEMP 98
== END 2022-10-06 01:46 | disposition home or self-care (01) ==
LOC: EC 22:01
DX: T58.91XA Toxic effect of carbon monoxide from unspecified source, accidental (unintentional), initial encounter (principal); F90.9 Attention-deficit hyperactivity disorder, unspecified type; F17.290 Nicotine dependence, other tobacco product, uncomplicated; R11.2 Nausea with vomiting, unspecified; R51.9 Headache, unspecified; Z88.2 Allergy status to sulfonamides
CPT/HCPCS: 36415; 93005; 80053; 82375; 85025; 71046; 99284; 96374; 96361 ×2; J2405